=== PATIENT | male | born 2000 | race Caucasian/White ===

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

== ENCOUNTER 2022-08-24 08:01 | Emergency (ER) | payer MEDICAID ==
[~2022-08-24] VITALS: Ht 170.2 cm; Wt 63.6 kg
[2022-08-24 08:03] VITALS: BP 126/77
[2022-08-24] MEDS ORDERED: neomy sulf/polymyx B sulf/HC 10ml otic suspension EACH EAR ONE (09:30)
[2022-08-24] MEDS ORDERED: neomy sulf/polymyx B sulf/HC otic soln 10ml EACH EAR ONE (09:30)
== END 2022-08-24 09:59 | disposition home or self-care (01) ==
LOC: ER 08:02
DX: H66.93 Otitis media, unspecified, bilateral (principal); H91.93 Unspecified hearing loss, bilateral; H92.03 Otalgia, bilateral; F12.90 Cannabis use, unspecified, uncomplicated; Z98.890 Other specified postprocedural states; Z72.0 Tobacco use; Z72.89 Other problems related to lifestyle
CPT/HCPCS: 99283

== ENCOUNTER 2022-12-04 18:05 | Emergency (ER) | payer MEDICAID ==
[~2022-12-04] VITALS: Ht 170.2 cm; Wt 63.0 kg
[2022-12-04 18:10] VITALS: BP 139/77
[2022-12-04] MEDS ORDERED: ondansetron 4mg rapidly disintigrating tab PO ONE (19:05)
[2022-12-04] MEDS ORDERED: ibuprofen tablet 400 MG TABLET PO ONE (19:15)
[2022-12-04] MEDS ORDERED: amox tr/potassium clavulanate 875/125mg TAB PO ONE (19:45)
[2022-12-04] MEDS ORDERED: AMOX-117 PO (19:48)
== END 2022-12-04 19:58 | disposition home or self-care (01) ==
LOC: ER 18:06
DX: J02.0 Streptococcal pharyngitis (principal); R51.9 Headache, unspecified; R11.2 Nausea with vomiting, unspecified; F12.90 Cannabis use, unspecified, uncomplicated; Z98.890 Other specified postprocedural states; Z72.89 Other problems related to lifestyle
CPT/HCPCS: 87880; 99284

== ENCOUNTER 2024-11-02 22:09 | Emergency (ER) | payer SELFPAY ==
[~2024-11-02] VITALS: Ht 175.3 cm; Wt 79.5 kg
[2024-11-02 22:12] VITALS: BP 155/84; PULSE 101; RESP 20; TEMP 98.7; O2SAT 98
== END 2024-11-02 22:24 | disposition home or self-care (01) ==
LOC: ER 22:10
DX: Z02.89 Encounter for other administrative examinations (principal); R45.1 Restlessness and agitation; F17.290 Nicotine dependence, other tobacco product, uncomplicated; F10.90 Alcohol use, unspecified, uncomplicated; F12.90 Cannabis use, unspecified, uncomplicated; Z98.890 Other specified postprocedural states
CPT/HCPCS: 99283

== ENCOUNTER 2024-11-04 00:17 | Emergency (ER) | payer MEDICAID ==
[~2024-11-04] VITALS: Ht 172.7 cm; Wt 68.8 kg
[2024-11-04 02:12] VITALS: BP 117/85; PULSE 75; RESP 18; TEMP 98.5; O2SAT 98
== END 2024-11-04 02:18 | disposition home or self-care (01) ==
LOC: ER 00:18
DX: S82.61XA Displaced fracture of lateral malleolus of right fibula, initial encounter for closed fracture (principal); H11.31 Conjunctival hemorrhage, right eye; F17.290 Nicotine dependence, other tobacco product, uncomplicated; Y08.89XA Assault by other specified means, initial encounter; Y93.89 Activity, other specified; Y92.89 Other specified places as the place of occurrence of the external cause; Y99.8 Other external cause status
CPT/HCPCS: 73560; 73564; 73610; 99284; L4360